=== PATIENT | male | born 1935 | race Caucasian/White ===

== ENCOUNTER 2019-04-08 08:39 | Outpatient (CLI) | payer MEDICARE ==
--- NOTE | 2019-04-08 12:44 | CT ---
CT OF CHEST AND ABDOMEN AND PELVIS PERFORMED WITH COTNRAST ENHANCEMENT: HISTORY: Colon cancer. COMPARISON: None. FINDINGS: The lungs are clear of any infiltrative process. There are no pulmonary nodules or pleural effusions . There is no significant mediastinal or hilar adenopathy. No significant axillary lymphadenopathy. CT OF ABDOMEN PERFORMED WITH CONTRAST ENHANCEMENT: The liver shows no evidence of any focal mass. Spleen is within normal limits of size. Pancreas and gallbladder regions appear unremarkable. Right and left adrenal glands are normal. There is pronounced cortical scarring involving the right kidney. There is a punctate nonobstructing lower pole right renal calculus present. There is no sig nificant periaortic or mesenteric lymphadenopathy. There is a short-segment area within the hepatic flexure which appears to represent more of an apple core-type lesion measuring approximately 2.8 cm i n length. It is possible this is related to contraction, but I would more strongly favor that this i s a mass. There is intussusception of the cecum into the right colon. There is no obstruction assoc iated with this. The nodes in this region are only 3-[address] OF PELVIS PERFORMED WITH CONTRAST ENHANCEMENT: Diverticulosis of the colon which is more pronounced in the descending and sigmoid region is present. Bladder wall is slightly thickened. The prostate is not significantly enlarged. IMPRESSION: 1. Probable apple core lesion within the hepatic flexure suspicious for malignancy. I doubt this re presents an area of contraction. Separate from this area there is intussusception of the cecum into the right colon. I am not certain if there may be some type of second mass as a lead point. 2. Severe cortical scarring involving the right kidney with a punctate nonobstructing calculus. 3. Colonic diverticulosis. 4. Findings discussed with Dr. Garcia. CODE CR POS: [facility]
== END 2019-04-08 08:40 | disposition home or self-care (01) ==
LOC: SCSCT 08:39
PROVIDERS: ATTEND Internal Medicine Gastroenterology
DX: C18.9 Malignant neoplasm of colon, unspecified (principal); N28.89 Other specified disorders of kidney and ureter; K57.30 Diverticulosis of large intestine without perforation or abscess without bleeding; N20.0 Calculus of kidney; K56.1 Intussusception
CPT/HCPCS: 71260; 74177

== ENCOUNTER 2019-05-06 07:20 | Outpatient (CLI) | payer MEDICARE ==
[2019-05-06 11:46] LABS: #Basophils 0.1 thou/uL (0.0-0.2); #Eosinphils 0.3 thou/uL (0.0-0.7); #Lymphocytes 2.8 thou/uL (1.20-3.40); #Monocytes 1.1 thou/uL (0.11-0.59); #Neutrophils 6.7 thou/uL (1.40-6.50); %Basophils 0.5 % (0.0-1.0); %Eosinophils 2.5 % (0.0-10.0); %Lymphocytes 25.8 % (21.0-51.0); %Monocytes 10.2 % (0.0-10.0); Hemoglobin 12.8 g/dL (14.0-18.0); Mean Corpuscular HGB CONC 31.7 g/dL (32.0-36.0); Mean Corpuscular Hemoglobin 29.2 pg (27.0-31.0); Mean Corpuscular Volume 92.1 fL (78.0-98.0); Platelet Count 319 thou/uL (130-400); RBC Distribution Width 14.6 % (11.5-14.5); Red Blood Cell (RBC) Count 4.38 mill/uL (4.70-6.10)
[2019-05-06 12:18] LABS: Anion Gap 12 mmol/L (10-20); BUN (Urea Nitrogen) 11 mg/dL (8.4-25.7); Calc. Creatinine Clearance 0 mL/min (70-130); Carbon Dioxide 25 mmol/L (23-31); Chloride 108 mmol/L (98-107); Estimated GFR-MDRD 70; Potassium 4.5 mmol/L (3.5-5.1); Sodium 140 mmol/L (136-145)
[2019-05-06 12:19] LABS: Calcium 9.8 mg/dL (7.8-10.44); Glucose 96 mg/dL (83-110)
--- NOTE | 2019-05-07 11:37 | EKG ---
Test Reason : Blood Pressure : / mmHG Vent. Rate : 053 BPM Atrial Rate : 053 BPM P-R Int : 000 ms QRS Dur : 084 ms QT Int : 416 ms P-R-T Axes : 048 002 030 degrees QTc Int : 390 ms Sinus bradycardia with 1st degree A-V block Otherwise normal ECG When compared with ECG of 25-MAY-2011 08:36, Premature ventricular complexes are no longer Present TX interval has decreased Confirmed by JESSICA GOULD, SRocio ([id number]) on 05/07/2019 11:37:49 AM Referred By: DARRIAN Confirmed By:DR. Marielos LOPEZ MD
== END 2019-05-06 07:21 | disposition home or self-care (01) ==
LOC: LABBT 07:20
PROVIDERS: ATTEND Specialist
DX: Z01.818 Encounter for other preprocedural examination (principal); C18.2 Malignant neoplasm of ascending colon
CPT/HCPCS: 80048; 85025; 93005; 93010

== ENCOUNTER 2019-05-06 09:30 | Inpatient (IN) | payer MEDICARE ==
[2019-05-07] MEDS ORDERED: PHENYLEPHRINE-NS 100 MCG/ML 10 ML SYRINGE ONE (10:23)
[2019-05-07] MEDS ORDERED: EPHEDRINE 25 MG/5 ML SYRINGE ONE (10:23)
[2019-05-07] MEDS ORDERED: Bupivacaine HCl 0.5%/Epinephrine 1:200,000/PF 30 ml Vial ONE (10:23)
[2019-05-07] MEDS ORDERED: Labetalol HCl 100 MG/20 ML VIAL ONE (10:23)
[2019-05-07] MEDS ORDERED: Lidocaine 1% PF 5 ML VIAL ONE (10:23)
[2019-05-07] MEDS ORDERED: Ondansetron PF 4 MG/2 ML Vial ONE (10:23)
[2019-05-07] MEDS ORDERED: Metoprolol Tartrate 5 MG/5 ML VIAL ONE (10:23)
[2019-05-07] MEDS ORDERED: PROPOFOL 200 MG/20 ML VIAL ONE (10:23)
[2019-05-07] MEDS ORDERED: Rocuronium Bromide 10 MG/ML (10ML VIAL) ONE (10:23)
[2019-05-07] MEDS ORDERED: Glycopyrrolate 0.2 MG/ML 5 ML SYRINGE ONE (10:23)
[2019-05-07] MEDS ORDERED: Acetaminophen 500 MG TAB ONE (11:07)
[2019-05-07] MEDS ORDERED: Ketorolac Tromethamine 30 MG/ML VIAL ONE (11:07)
[2019-05-07] MEDS ORDERED: Midazolam HCl 2 mg/2 ml Vial ONE (11:19)
[2019-05-07] MEDS ORDERED: Fentanyl 100 MCG/2 ML VIAL ONE ×3 (11:19→15:03)
[2019-05-07] MEDS ORDERED: Lidocaine 1% (PF) 30 ML VIAL ONE (11:19)
[2019-05-07] MEDS ORDERED: Dexamethasone 4 mg/ml Vial ONE (11:23)
[2019-05-07] MEDS ORDERED: Lidocaine 2% Jelly 5 ML TUBE ONE (15:03)
[2019-05-07] MEDS ORDERED: Lidocaine 1% w/Epinephrine 1:100K 20 ML VIAL ONE ×2 (15:41→17:10)
[2019-05-07] MEDS ORDERED: Promethazine HCl 25 MG/ML VIAL IM PRN ×2 (17:41→19:36)
[2019-05-07] MEDS ORDERED: Ondansetron HCl/PF 4 MG/2 ML Vial IVP PRN (17:41)
[2019-05-07] MEDS ORDERED: Promethazine HCl 25 MG/ML VIAL SLOW IVP PRN (17:41)
[2019-05-07] MEDS ORDERED: D5 1/2 NS w/20 mEq KCL 1,000 ML ONE (18:02)
[2019-05-07] MEDS ORDERED: Morphine 4 MG/ML VIAL SLOW IVP PRN (19:36)
[2019-05-07] MEDS ORDERED: Ondansetron PF 4 MG/2 ML Vial IVP PRN (19:36)
[2019-05-07] MEDS: Morphine 2 MG/ML SYRINGE SLOW IVP PRN (20:08)
[2019-05-07] MEDS: Famotidine/PF 20 mg/2ml Vial SLOW IVP SCH (20:09)
[2019-05-07] MEDS: Ketorolac Tromethamine 30 MG/ML VIAL IVP SCH (20:09)
[2019-05-07] MEDS: D5 1/2 NS w/20 mEq KCL 1,000 ML IV SCH (20:09)
[2019-05-07] MEDS: Famotidine 20 MG TAB PO SCH (20:16)
[2019-05-07] MEDS: hydrALAZINE 20 MG/ML VIAL SLOW IVP PRN (20:21)
[2019-05-07 21:30] VITALS: BMI 24.7
[2019-05-08] MEDS: Ketorolac Tromethamine 30 MG/ML VIAL IVP SCH ×4 (02:18→20:15)
[2019-05-08] MEDS: D5 1/2 NS w/20 mEq KCL 1,000 ML IV SCH ×4 (05:11→15:07)
[2019-05-08 05:36] LABS: #Lymphocytes 1.9 thou/uL (1.20-3.40); #Monocytes 1.1 thou/uL (0.11-0.59); %Basophils 0.2 % (0.0-1.0); %Eosinophils 0.2 % (0.0-10.0); %Monocytes 10.1 % (0.0-10.0); %Neutrophils 72.5 % (42.0-75.0); Hemoglobin 10.9 g/dL (14.0-18.0); Mean Corpuscular HGB CONC 33.5 g/dL (32.0-36.0); Mean Corpuscular Hemoglobin 30.3 pg (27.0-31.0); Mean Corpuscular Volume 90.6 fL (78.0-98.0); Mean Platelet Volume 8.4 fL (7.4-10.4); Platelet Count 241 thou/uL (130-400); RBC Distribution Width 14.2 % (11.5-14.5); Red Blood Cell (RBC) Count 3.58 mill/uL (4.70-6.10)
[2019-05-08 06:17] LABS: Anion Gap 11 mmol/L (10-20); BUN (Urea Nitrogen) 11 mg/dL (8.4-25.7); Calc. Creatinine Clearance 49 mL/min (70-130); Calcium 8.2 mg/dL (7.8-10.44); Carbon Dioxide 21 mmol/L (23-31); Chloride 105 mmol/L (98-107); Estimated GFR-MDRD 57; Glucose 144 mg/dL (83-110); Potassium 4.3 mmol/L (3.5-5.1); Sodium 133 mmol/L (136-145)
[2019-05-08] MEDS: Famotidine/PF 20 mg/2ml Vial SLOW IVP SCH ×2 (08:08→22:11)
[2019-05-08] MEDS: Famotidine 20 MG TAB PO SCH ×2 (08:09→20:15)
[2019-05-08] MEDS: Enoxaparin Sodium 40 MG/0.4 ML SYRINGE SC SCH (09:23)
[2019-05-08] MEDS: Morphine 2 MG/ML SYRINGE SLOW IVP PRN ×2 (12:45→18:47)
--- NOTE | 2019-05-08 14:27 | PRG ---
DATE OF SERVICE: 05/08/2019 SUBJECTIVE: Mr. Pichardo is postoperative day #1 from laparoscopic right hemicolectomy. He complains of pain in his right upper abdomen at the site of his extraction incision. He tells me he has been tolerating clear liquids. He is yet to have flatus or bowel movement. He has ambulated briefly with a walking team. OBJECTIVE: VITAL SIGNS: On examination, he is afebrile. Temperature is 97.4, pulse is 70, blood pressure is 116/56. His urine output overnight was 375 mL. LUNGS: Clear to auscultation. ABDOMEN: Soft with minimal tenderness. Bowel sounds are present, but hypoactive. LABORATORY DATA: His CBC shows a white blood cell count of 11 with a hemoglobin of 10.9. Chemistries reveal minimal electrolyte abnormalities. ASSESSMENT AND PLAN: The patient with unremarkable course after his laparoscopic right hemicolectomy. I have encouraged him to get out of bed and ambulate regularly. He seems somewhat resistant secondary to his perceived discomfort. I will continue clear liquids for now as his bowel sounds are hypoactive. Hopefully, we can advance this to full liquids tomorrow. Job ID: [id number]
[2019-05-08] MEDS: HYDROcodone/Acetaminophen 7.5/325 mg Tablet PO PRN (20:20)
[2019-05-08] MEDS ORDERED: Rosuvastatin 10 MG TAB PO SCH (21:00)
[2019-05-09] MEDS: Ketorolac Tromethamine 30 MG/ML VIAL IVP SCH ×2 (03:42→08:55)
[2019-05-09] MEDS: D5 1/2 NS w/20 mEq KCL 1,000 ML IV SCH (06:05)
[2019-05-09] MEDS ORDERED: IRON 18 MG PO SCH (08:00)
[2019-05-09] MEDS: Famotidine 20 MG TAB PO SCH (08:56)
[2019-05-09] MEDS: Famotidine/PF 20 mg/2ml Vial SLOW IVP SCH (08:57)
[2019-05-09] MEDS ORDERED: Aspirin 81 mg Enteric Coated Tablet PO SCH (09:00)
[2019-05-09] MEDS: hydrALAZINE 20 MG/ML VIAL SLOW IVP PRN (09:02)
[2019-05-09] MEDS: HYDROcodone/Acetaminophen 7.5/325 mg Tablet PO PRN (09:04)
[2019-05-09] MEDS: Enoxaparin Sodium 40 MG/0.4 ML SYRINGE SC SCH (09:21)
[2019-05-09 11:50] VITALS: BP 117/62; TEMP 98.1
--- NOTE | 2019-05-09 16:02 | OP ---
DATE OF PROCEDURE: 05/07/2019 PREOPERATIVE DIAGNOSIS: Right colon cancer. POSTOPERATIVE DIAGNOSIS: Right colon cancer. PROCEDURE PERFORMED: Laparoscopic-assisted right hemicolectomy. ANESTHESIA: General endotracheal. INDICATIONS: The patient is an 84-year-old white male. He recently underwent colonoscopy revealing a malignancy within the ascending colon. He is taken to the operating room at this time for laparoscopic right hemicolectomy. DESCRIPTION OF OPERATION: Informed consent was obtained. The patient was taken to the operating room, where general endotracheal anesthesia was obtained with the patient in supine position. Abdomen was prepped with ChloraPrep and draped in sterile fashion. Tap block had been placed by Anesthesia preoperatively. Abdomen was prepped with ChloraPrep and draped in sterile fashion. Local anesthetic was infiltrated. A 5-mm left upper quadrant incision was created through which a Veress needle was passed into the peritoneal cavity and pneumoperitoneum was established using carbon dioxide up to pressure of 15 mmHg. A 5-mm trocar port was passed through the same incision. Laparoscopic camera was passed through this port. Under direct vision, a second 5-mm left lower quadrant port was placed. Attention was turned to the colon. It appeared that the malignancy was within the cecum. I selected a location for the extraction port in the right upper quadrant. Additional local anesthetic was infiltrated. An oblique right upper quadrant incision was created and muscle-splitting was used to gain access into the abdominal cavity. The Edwin wound retractor was passed through this incision and GelPort was affixed to this. Hand-assisted laparoscopy was continued. The terminal ileum and cecum were both fairly densely affixed to the lateral peritoneal wall. These were each mobilized using LigaSure device. Once adequate laxity was obtained, the cecum was distracted laterally and inferiorly. This allowed identification of the ileocolic pedicle. This was identified and dissected. A retroperitoneal dissection was carried laterally behind a mesentery of the right colon. I then divided the vessels of the ileocolic pedicle also using the LigaSure device with meticulous hemostasis. Dissection was then carried through the mesentery superiorly up towards the transverse colon. Utilizing the LigaSure, I fully mobilized the right colon from its lateral attachments. The hepatic flexure was fully mobilized as well. At this juncture, I opted to pass the right colon extracorporeal through the wound retractor. I then completed the mesenteric dissection to the level of the ileum inferiorly and to the level of the proximal transverse colon superiorly. I utilized segregated instruments with a tiled off wound. A double-stapled anastomosis was created between the ileum and the transverse colon. The specimen was passed off the field. All instruments that were being utilized during this time, the bowel was open were passed off the field and gloves were changed as well. The GelPort was then replaced and laparoscopy was continued. The right side of the abdomen was inspected and thoroughly irrigated. All irrigant was aspirated. The hemostasis appeared to be meticulous. The anastomosis was inspected. Not mentioned earlier was that the anastomosis was buttressed with a series of interrupted sutures of 3-0 silk, all of which appeared to be intact. The camera and all instruments were removed under direct vision. Pneumoperitoneum was carefully evacuated. Ports and the wound retractor were removed. The abdominal wall was cleansed with saline and all laparoscopic instrument was passed off the field. Gowns and gloves were changed and the closing tray was utilized. The fascia of the right upper quadrant incision was closed with #1 PDS suture in 2 layers. Additional local anesthetic was infiltrated during closure. The wound was then copiously irrigated with 2 L of saline, all of which was aspirated. The remainder of the wound was closed in layers with 3-0 and 4-0 Monocryl. The ports were closed with 4-0 Monocryl. Dermabond was placed externally. There were no complications. Blood loss was negligible. The patient tolerated the procedure well and was taken to recovery room in stable condition. Job ID: [id number]
== END 2019-05-09 13:52 | disposition home or self-care (01) | DRG 331 ==
LOC: SURG A 05-07 10:44
PROVIDERS: ADMIT Specialist; ATTEND Specialist
PROC: 0DTF4ZZ Resection of Right Large Intestine, Percutaneous Endoscopic Approach (ICD-10-PCS; principal; 2019-05-07)
PROC: 0FD03ZX Extraction of Liver, Percutaneous Approach, Diagnostic (ICD-10-PCS; 2019-05-07)
DX: C18.2 Malignant neoplasm of ascending colon (principal); I10 Essential (primary) hypertension
CPT/HCPCS: 36415; 36416; 80048; 85025; 88307; 88309; 93005; J0360; J0670; J0694; J1100; J1650; J1885; J2001; J2250; J2270; J2405; J2704; J3010; S0028